=== PATIENT | female | born 1940 | race Caucasian/White ===

== ENCOUNTER 2016-04-23 07:33 | Inpatient (IN) | payer MEDICARE, OTHER ==
[~2016-04-23] VITALS: Ht 167.6 cm; Wt 75.8 kg
[2016-04-23] MEDS ORDERED: HYDROmorphone 1 MG/ML (DILAUDID) SYRINGE IV ONE (07:45)
[2016-04-23 08:00] VITALS: BP 143/59
[2016-04-23 08:02] LABS: BASOPHILS % (AUTO) 1 % (0-2); EOSINOPHILS # (AUTO) 0.1 10^3uL; EOSINOPHILS % (AUTO) 1 % (0-4); LYMPHOCYTES # (AUTO) 1.2 X10^3; MEAN CORPUSCULAR HGB CONC 34.7 g/dL (31.0-37.0); MEAN CORPUSCULAR VOLUME 93 FL (80-100); MONOCYTES # (AUTO) 0.8 X10^3; MONOCYTES % (AUTO) 15 % (3-11); NEUTROPHILS # (AUTO) 3.4 X10^3; NEUTROPHILS % (AUTO) 62 % (51-67); PLATELET COUNT 137 10^3uL (150-450); WHITE BLOOD COUNT 5.54 10^3uL (4.0-11.0)
[2016-04-23 08:14] LABS: ALBUMIN 4.2 g/dL (3.4-5.0); ANION GAP 12.7 MEQ/L (3-15); CALCULATED IONIZED CALCIUM 3.9 mg/dL (3.8-4.6); MEAN CORPUSCULAR HEMOGLOBIN 32.3 PG (26.0-34.0); TOTAL PROTEIN 7.7 g/dL (6.4-8.5)
[2016-04-23 09:07] LABS: BILIRUBIN,URINE Negative (Negative); CLARITY,URINE Slightly Cloudy; COLOR,URINE Yellow; GLUCOSE, URINE (UA) Negative (Negative); LEUKOCYTE ESTERASE ,URINE Negative (Negative); UROBILINOGEN,URINE 0.2 mg/dL (0.2-1.0)
[2016-04-23 09:10] LABS: URINE CENTRIFUGED VOLUME 12 mL
--- NOTE | 2016-04-23 09:11 | NUR ---
PT TEMP RECHK = 100.1 TEMPORAL. CL
--- NOTE | 2016-04-23 09:18 | NUR ---
DR GUPTA CALLS PHYSICIAN RE PT. CL
--- NOTE | 2016-04-23 09:23 | NUR ---
PT ALARM STARTED TO GO OFF SUDDENLY. THIS RN SAW A CARDIAC RATE OF 146. THIS RN CHECKS ON PT WHO IS LYING QUIETLY IN BED TALKING W/HER DAUGHTER & HUSB AT BEDSIDE. SHE STATES SHE FEELS HER USUAL "HEART PALPITATIONS" AT THIS TIME THEN STATES "IT FEELS LIKE MY HEART IS FLUTTERING". DR GUPTA NOTIFIED & ORDERS EKG. CL
[2016-04-23 09:45] LABS: CREATINE KINASE 27 U/L (30-135)
[2016-04-23] MEDS ORDERED: HYDROcodone/APAP 7.5 MG/325 MG (NORCO) TABLET PO PRN (10:10)
[2016-04-23] MEDS ORDERED: POLYETHYLENE GLYCOL 17 GM (MIRALAX) PACKET PO PRN (10:10)
[2016-04-23] MEDS ORDERED: ONDANSETRON 2 MG/ML (Z0FRAN) 2 ML VIAL IV PRN (10:10)
[2016-04-23] MEDS ORDERED: ACETAMINOPHEN 325 MG TAB (TYLENOL) PO PRN (10:10)
--- NOTE | 2016-04-23 10:10 | NUR ---
Patient admitted to room 315 per cart from ER. She reports relief from her leg pain but reports she doesn't like the way that particular pain medication makes her feel. She is able to transfer to the weight chair and to bed slowly but she is unsteady and uses furniture to walk with. Encouraged a walker.
[2016-04-23 10:33] VITALS: BP 150/67
--- NOTE | 2016-04-23 10:33 | NUR ---
MONITOR HAD BEEN DISCHARGED FOR PT WITH OUT HAVING CARDIAC STRIPS PRINTED PRIOR TO DC EXCEPT FOR INITIAL STRIP. HR WNL WITH EXCEPTION OF SHORT TACHY RUN WITH RATE OF 146 MAX RATE. RUN LASTED ONLY FOR 3 MIN. BEFORE RETURNING TO NML RATE. VITALS WERE ONLY PRINTED FROM 0858 TO D/C. CL
[2016-04-23 10:35] VITALS: BP 150/67
--- NOTE | 2016-04-23 10:45 | NUR ---
Telemetry indicates a heart rate of 85.
[2016-04-23] MEDS ORDERED: NS FLUSH 10 ML PRN IV (11:10)
[2016-04-23] MEDS ORDERED: NS FLUSH 3 ML PRN IV (11:10)
[2016-04-23] MEDS: GABAPENTIN 100 MG (NEURONTIN) CAP PO SCH ×3 (12:37→20:22)
[2016-04-23] MEDS: DOCUSATE SODIUM 100 MG (COLACE) CAP PO SCH (12:37)
[2016-04-23] MEDS: SPIRONOLACTONE 25 MG (ALDACTONE) TABLET PO SCH (12:37)
[2016-04-23] MEDS: SOTALOL 80 MG (BETAPACE) TAB PO SCH ×2 (12:38→20:22)
[2016-04-23] MEDS: ENOXAPARIN 80 MG/0.8 ML (LOVENOX) SYR SC SCH ×2 (12:38→20:22)
[2016-04-23] MEDS ORDERED: LORazepam 0.5 MG (ATIVAN) TABLET PO SCH (13:00)
--- NOTE | 2016-04-23 14:35 | NUR ---
Removed O2. Will recheck sat. Patient reports she normally only wears O2 at bedtime.
--- NOTE | 2016-04-23 15:12 | NUR ---
Medication reconciliation pending: Daughter to call in some script info from medication at home.
--- NOTE | 2016-04-23 15:25 | NUR ---
O2 sat.= 90-91% on room air.
[2016-04-23 16:14] VITALS: BP 112/56
--- NOTE | 2016-04-23 16:54 | NUR ---
Pt. states she used O2 @2 l nc at [facility]. IS at 750-1000mls, good effort.
--- NOTE | 2016-04-23 17:57 | NUR ---
Patient has been able to walk to the bathroom with assist of one or two and the walker. The walker seems to make her more confident about ambulation. Complained of headache pain earlier in the shift but this was relieved with Tylenol and one Lortab dose. Able to sit at the side of the bed independently. Uses bed rails to help reposition herself.
[2016-04-23] MEDS: LORazepam 0.5 MG (ATIVAN) TABLET PO SCH ×2 (18:04→20:22)
[2016-04-23 19:56] VITALS: BP 155/68
--- NOTE | 2016-04-23 20:50 | NUR ---
Patient up to use restroom with two assist, states she is having troubles moving feet while standing with walker. Is shuffling feet and starts to fall. Lowered to ground by staff. Returned to commode with 3 assist, and then returned to bed after with 3-4 assistance. Patient states "I don't know what happened, I was doing so well and then I just couldn't move my legs." Did not hit head, was lowered to ground to knees. Patient without new pain. Juan R Nevarez RN/Recruitment Specialist notified of controlled fall. No needs at this time.
[2016-04-23] MEDS ORDERED: SOTALOL 80 MG (BETAPACE) TAB PO SCH (21:00)
[2016-04-23] MEDS: HYDROcodone/APAP 7.5 MG/325 MG (NORCO) TABLET PO PRN (21:25)
--- NOTE | 2016-04-23 21:35 | NUR ---
Dr. Linares notified of patient's controlled fall. No new orders.
[2016-04-24] VITALS: BP 123/60
[2016-04-24] MEDS ORDERED: TROLAMINE TOP PRN (01:55)
[2016-04-24 04:32] VITALS: BP 127/66
[2016-04-24 06:05] LABS: BASOPHILS % (AUTO) 0 % (0-2); EOSINOPHILS % (AUTO) 1 % (0-4); LYMPHOCYTES # (AUTO) 1.5 X10^3; MEAN CORPUSCULAR HGB CONC 34.2 g/dL (31.0-37.0); MEAN CORPUSCULAR VOLUME 94 FL (80-100); MEAN PLATELET VOLUME 10.4 FL (6.0-9.5); MONOCYTES # (AUTO) 0.9 X10^3; MONOCYTES % (AUTO) 14 % (3-11); NEUTROPHILS # (AUTO) 3.7 X10^3; NEUTROPHILS % (AUTO) 60 % (51-67); PLATELET COUNT 117 10^3uL (150-450); WHITE BLOOD COUNT 6.09 10^3uL (4.0-11.0)
[2016-04-24 06:13] LABS: ALBUMIN 3.8 g/dL (3.4-5.0); ANION GAP 11.5 MEQ/L (3-15); CALCULATED IONIZED CALCIUM 3.8 mg/dL (3.8-4.6); MAGNESIUM* 1.6 mg/dL (1.6-2.3); TOTAL PROTEIN 7.1 g/dL (6.4-8.5)
--- NOTE | 2016-04-24 06:22 | NUR ---
Patient has had difficulties with leg strength throughout night. At times, has been unable to put any weight on her legs to support herself. Attempted to use [id number] lift, but patient reported back pain during use and requested to stop before moving off of bed. At this time, patient is utilizing bedpan, and states that she would like to try to stand again later in the morning. No needs at this time.
--- NOTE | 2016-04-24 07:15 | NUR ---
Patient sitting up at edge of bed upon shift assessment. Alert and oriented X3. Reports generalized headache neck ache rated 6/10 on pain scale.. PRN [place] provided. Denies chest pain, SOA, or palpitations. Telemetry intact and reflecting NSR. Lung sounds CTAB. Patient expresses concerns regarding weakness and current gate. Positive reassurance provided. Patient agrees to call for assistance when needing to ambulate. Updated on plan of care for shift. Call light in reach.
[2016-04-24] MEDS: HYDROcodone/APAP 7.5 MG/325 MG (NORCO) TABLET PO PRN ×2 (07:19→17:43)
[2016-04-24 07:43] VITALS: BP 141/57
[2016-04-24] MEDS: DOCUSATE SODIUM 100 MG (COLACE) CAP PO SCH (09:10)
[2016-04-24] MEDS: SOTALOL 80 MG (BETAPACE) TAB PO SCH ×2 (09:10→20:57)
[2016-04-24] MEDS: NS FLUSH 3 ML DAILY IV SCH (09:10)
[2016-04-24] MEDS: FLUoxetine 20 MG (PROzac) CAPSULE PO SCH (09:10)
[2016-04-24] MEDS: ENOXAPARIN 80 MG/0.8 ML (LOVENOX) SYR SC SCH (09:10)
[2016-04-24] MEDS: SPIRONOLACTONE 25 MG (ALDACTONE) TABLET PO SCH (09:10)
[2016-04-24] MEDS: LORazepam 0.5 MG (ATIVAN) TABLET PO SCH ×3 (12:29→20:57)
[2016-04-24] MEDS: GABAPENTIN 100 MG (NEURONTIN) CAP PO SCH ×3 (12:29→20:58)
--- NOTE | 2016-04-24 14:13 | NUR ---
MULTIDISCIPLINARY MTG/DR. SALAZAR: Pt. fell at home and was in Afib with RVR. This is chronic for Pt. and she is on medication at home for this. Pt. has been in sinus rhythm since admission. Telemetry was discharged. Pt. feels better today. Pt. would benefit from skilled care but is refusing to go to [facility]. Pt. may be skilled here at the hospital.
--- NOTE | 2016-04-24 14:54 | NUR ---
Med Rec completed via conversation with patient and list from [facility].
[2016-04-24 15:51] VITALS: BP 109/52
--- NOTE | 2016-04-24 18:03 | NUR ---
Patient sits up at edge of bed intermittently throughout day. Transferring with 2 assist to bedside commode. Reports feeling less weak but "not up to par". PETEN Yanelis provided per request at 1745 for c/o left knee pain rated 5/10 on pain scale. Daughter here this afternoon. Participates well with PT and OT. Call light in reach.
--- NOTE | 2016-04-24 20:49 | NUR ---
Pt found sleeping in bed on 2 l/min NC, SPO2 97%, HR 68.
[2016-04-24] MEDS: DABIGATRAN 150 MG (PRADAXA) CAPSULE PO SCH (20:58)
[2016-04-25 00:24] VITALS: BP 101/38
[2016-04-25 00:32] VITALS: BP 120/65
--- NOTE | 2016-04-25 04:30 | NUR ---
Patient rang call light to get up. 3 to one assist to transfer with gait belt. Patient became agitated and full of frustration during transfer. [place] rushed by staff to stand and transfer to chair and sat back on bed. Staff waited until patient stated she was ready. Transfer made. Transfers poorly.
--- NOTE | 2016-04-25 04:40 | NUR ---
Patient finished on commode and assisted back to bed. 2:1 assist. This ghost writer visits with patient about her frustration. Educated that we do not want her to fall again. Educated about the use of gait belts and standing close to patient to protect staff backs and prevent fall. Patient continues to be frustrated and makes statement more than once that she doesn't want to be here and if we don't want her here she will just go home. Patient can sometimes bear weight and walk and sometimes appears to not be able to bear weight or move legs. This ghost writer's assessment is that she cannot safely transfer without gait belt and 2:1 assist and her ability to bear weight and take steps is unreliable.
--- NOTE | 2016-04-25 07:00 | NUR ---
Received report from Dorys Franks RN. Assumed patient care.
--- NOTE | 2016-04-25 07:22 | NUR ---
Other than above incident, patient had quiet night and was without c/o pain or discomfort.
[2016-04-25 07:47] VITALS: BP 141/57
[2016-04-25 09:15] VITALS: BP 141/57
[2016-04-25] MEDS: NS FLUSH 3 ML DAILY IV SCH (09:17)
[2016-04-25] MEDS: SOTALOL 80 MG (BETAPACE) TAB PO SCH ×2 (09:18→16:39)
[2016-04-25] MEDS: FLUoxetine 20 MG (PROzac) CAPSULE PO SCH (09:18)
[2016-04-25] MEDS: DABIGATRAN 150 MG (PRADAXA) CAPSULE PO SCH ×2 (09:18→20:27)
[2016-04-25] MEDS: SPIRONOLACTONE 25 MG (ALDACTONE) TABLET PO SCH (09:18)
[2016-04-25] MEDS: DOCUSATE SODIUM 100 MG (COLACE) CAP PO SCH (09:18)
--- NOTE | 2016-04-25 10:47 | NUR ---
NUTRITION ASSESSMENT Level 1 Patient: Dorys Augustin Age/Sex: 76/F Date Screened: 04-25-16 Weight: 166.7#/75.8 kg Height: 66 inches Primary Diagnosis: a fib Diet Order: regular Relevant labs: N/A Food allergies: N Nutrition Assessment Criteria Age over 80: N Body Mass Index (BMI) under 19: N Admission Screening Indicates Risk? 6 points Moderate/High Risk Diagnosis: N TPN or PPN: N NPO or clear liquid diet: N Serum Glucose <70 or >180: N/A Hgb A1c >6.7: N/A Total: 6 points Risk Screen: __ Patient at low nutritional risk based on available data; reevaluate in 5-7 days __ Patient at moderate nutritional risk based on available data; reevaluate in 3-5 days _X_ Patient at high nutritional risk; complete Nutrition Assessment within 48 hours of admission.
[2016-04-25] MEDS: GABAPENTIN 100 MG (NEURONTIN) CAP PO SCH ×3 (12:31→20:27)
[2016-04-25] MEDS: LORazepam 0.5 MG (ATIVAN) TABLET PO SCH ×3 (12:31→20:27)
--- NOTE | 2016-04-25 13:32 | NUR ---
NUTRITION ASSESSMENT Level II Patient: Dorys Augustin Age/Sex: 76/F Date Assessed: 04-25-16 ASSESSMENT Pertinent History: Patient admitted with a fib and screened at high nutritional risk secondary to weight loss compared with last admission 5 months ago and concern for her ability to care for herself at home with weakness, recent falls and difficulty standing for periods of time. Pt. lives at home with her and her daughter helps with getting groceries and cooking. PMHx includes MS, a fib, heart failure and HTN. She denied GI concerns. Last documented weight was 175# in 2015. Meds/Nutrition: Spironolactone Weight: 166.7#/75.8 kg Height: 66 inches Body Mass Index (BMI): 27.0 [place] Body Weight : 130#/59 kg % IBW: 128% GASTROINTESTINAL Appetite: good, eating 75-100% Diet Order: regular Unintentional loss of >10 lbs. in 3 months: N Difficult to chew/swallow: N Diabetes: N Relevant Labs: N/A Calculations for Nutritional Assessment Estimated calorie needs: 22-25 kcals/kg = 1,650-1,875 kcals Estimated protein needs: 1.0-1.3 g/kg = 75-97 g./day DIAGNOSIS 1. Nutrition Diagnosis: Concern for inadequate intake related to difficulty preparing meals at home due to weakness as evidenced by 8.3# (4.7%) weight loss in the past 5 months and weakness/falls. NUTRITIONAL INTERVENTION Goal: Patient will receive adequate nutrition to meet her needs. Plan: Will provide regular diet as ordered and monitor intake for adequacy. Pt. is working with PT and OT and plan is for skilled care tomorrow to work on strengthening. Concern for her nutritional status at home will depend on her rehabilitation potential and ability to safely access foods and fluids, as well as family's ability to prepare meals for her. Per nursing, pt. is not currently safe even to walk across the room on her own to get a drink of water. MONITORING & EVALUATION _X_ Monitor patients menu selections _X_ Monitor patients food intake per nursing notes __ Monitor NPO/clear liquid days __ Monitor lab values __ Monitor I&O
[2016-04-25 15:52] VITALS: BP 148/66
[2016-04-25] MEDS: HYDROcodone/APAP 7.5 MG/325 MG (NORCO) TABLET PO PRN (16:37)
--- NOTE | 2016-04-25 23:50 | NUR ---
Pt. resting quietly in bed on left side upon assessment; alert and orientated; answers questions appropriately. Lungs sounds are clear bilaterally; denies discomfort; regular heart rate. Room temp adjusted for comfort; warm blanket provided by this nurse. Safety measures in place. Call light and H2O within reach.
[2016-04-25 23:57] VITALS: BP 109/50
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
--- NOTE | 2016-04-26 02:45 | NUR ---
Pt. resting in bed now; watching tv; O2 at 2L via NC applied for sleep/HS; call light, H2O within reach. Safety measures observed. Pt. denies discomfort.
--- NOTE | 2016-04-26 04:05 | NUR ---
Pt. requests bedside commode; pt. pivots well with gait belt and assist x 1; stand by x 1. Urine dark [place] in coloration; very odorous. Pt. denies discomfort. Back to bed; call light within reach; safety measures observed. Pt. did not appear to be anxious/agitated with mobility process this time.
--- NOTE | 2016-04-26 06:20 | NUR ---
Pt. slept in intervals; states, "I don't sleep very long at home, either-sleep for awhile then get up and go do something". Pt. denies discomfort. Pt. utilized bedside commode the last few times rather than ambulate into bathroom; becomes agitated with staff when a lot of activity is required; voids often. Pt. remains weak and unsteady; although determined to "do it myself". Pt. has remained afebrile. Safety measures in place; call light and H2O within reach.
[2016-04-26] MEDS: HYDROcodone/APAP 7.5 MG/325 MG (NORCO) TABLET PO PRN (07:21)
--- NOTE | 2016-04-26 07:28 | NUR ---
Sitting at edge of bed. Lortab given for pain in legs and feet. Patient describes twitching. States she didn't sleep well and that she should have asked for pain medicine earlier. Lays down to rest for a few minutes before breakfast. AM assessment completed.
[2016-04-26 08:00] VITALS: BP 140/68
[2016-04-26 08:02] VITALS: BP 123/52
[2016-04-26] MEDS ORDERED: POTASSIUM CHLORIDE ER 20 MEQ TABLET PO SCH (08:25)
[2016-04-26] MEDS: DOCUSATE SODIUM 100 MG (COLACE) CAP PO SCH (08:26)
[2016-04-26] MEDS: SOTALOL 80 MG (BETAPACE) TAB PO SCH (08:26)
[2016-04-26] MEDS: SPIRONOLACTONE 25 MG (ALDACTONE) TABLET PO SCH (08:26)
[2016-04-26] MEDS: FLUoxetine 20 MG (PROzac) CAPSULE PO SCH (08:27)
[2016-04-26] MEDS: DABIGATRAN 150 MG (PRADAXA) CAPSULE PO SCH (08:27)
[2016-04-26] MEDS ORDERED: MAGNESIUM OXIDE 400 MG (MAG-OX) TAB PO SCH (08:45)
[2016-04-26] MEDS: NS FLUSH 3 ML DAILY IV SCH (09:00)
--- NOTE | 2016-04-26 09:43 | NUR ---
Patient being transferred to [facility] today for strengthening. Has had a fair morning and seems in decent spirits for now since legs have quit hurting. No new complaints.
== END 2016-04-26 09:43 | disposition swing bed (61) | DRG 308 ==
LOC: EDUNIT# 07:33 → ED 07:35 → MED/SURG 09:37
PROVIDERS: ADMIT Internal Medicine; ATTEND Internal Medicine
DX: I48.0 Paroxysmal atrial fibrillation (principal); J96.21 Acute and chronic respiratory failure with hypoxia; Z66 Do not resuscitate; G35 Multiple sclerosis; I11.0 Hypertensive heart disease with heart failure; I50.9 Heart failure, unspecified; M25.562 Pain in left knee; R35.0 Frequency of micturition; E83.42 Hypomagnesemia; E87.6 Hypokalemia; R53.1 Weakness; G47.33 Obstructive sleep apnea (adult) (pediatric); Z91.81 History of falling
CPT/HCPCS: 36415; 71020; 73562; 80053; 81003; 81015; 82550; 82553; 83735; 83880; 84443; 84484; 85025; 86140; 87040; 87486; 87581; 87633; 87798; 93005; 93010; 99284

== ENCOUNTER → 2016-04-23 | Outpatient (CLI) | payer MEDICARE, OTHER | LOC: EMS 07:15 | PROVIDERS: ATTEND Family Medicine | DX: M25.562 Pain in left knee (principal); R29.6 Repeated falls ==

== ENCOUNTER 2016-04-26 09:43 | Inpatient (IN) | payer MEDICARE, OTHER ==
[~2016-04-26] VITALS: Ht 167.6 cm; Wt 76.3 kg
--- NOTE | 2016-04-26 09:45 | NUR ---
[facility]
[2016-04-26] MEDS ORDERED: SODIUM CHLORIDE FLUSH 3 ML SYR IV PRN (10:15)
[2016-04-26] MEDS ORDERED: TROLAMINE TOP PRN (10:15)
[2016-04-26] MEDS ORDERED: POLYETHYLENE GLYCOL 17 GM (MIRALAX) PACKET PO PRN (10:15)
[2016-04-26] MEDS ORDERED: MAGNESIUM HYDROXIDE 80MG/ML (MILK OF MAGNESIA) 30 ML UDC PO PRN (10:25)
[2016-04-26] MEDS: LORazepam 0.5 MG (ATIVAN) TABLET PO SCH ×3 (12:29→20:33)
[2016-04-26] MEDS: POTASSIUM CHLORIDE ER 20 MEQ TABLET PO SCH ×2 (12:29→18:00)
[2016-04-26 12:34] VITALS: BP 155/76
[2016-04-26] MEDS: GABAPENTIN 100 MG (NEURONTIN) CAP PO SCH ×3 (12:34→20:33)
--- NOTE | 2016-04-26 12:36 | NUR ---
Pt instructed on IS and she has a good understanding of technique and purpose. 5 x 1000 ml with good breath hold.
[2016-04-26 14:14] LABS: BILIRUBIN,URINE Negative (Negative); CLARITY,URINE Cloudy; COLOR,URINE Yellow; GLUCOSE, URINE (UA) Negative (Negative); LEUKOCYTE ESTERASE ,URINE Negative (Negative)
[2016-04-26 14:36] LABS: RBC,URINE 20-50 /HPF; URINE CENTRIFUGED VOLUME 12 mL
[2016-04-26 15:29] VITALS: BP 115/67
[2016-04-26] MEDS: MAGNESIUM OXIDE 400 MG (MAG-OX) TAB PO SCH (18:00)
[2016-04-26] MEDS: ACETAMINOPHEN 325 MG TAB (TYLENOL) PO PRN (18:09)
--- NOTE | 2016-04-26 18:36 | NUR ---
Patient had leg pain this morning and again around supper time. [place] given this AM and tylenol given this evening. Other than leg pain, patient has denied pain. was here to visit today and patient had nap in bed this afternoon. Has been ambulating to bathroom to void today with walker, gait belt and 1:1 assist. Transferred to [facility] this morning.
[2016-04-26] MEDS: DABIGATRAN 150 MG (PRADAXA) CAPSULE PO SCH (20:33)
[2016-04-26] MEDS: SOTALOL 80 MG (BETAPACE) TAB PO SCH (20:33)
[2016-04-27 00:13] VITALS: BP 115/48
--- NOTE | 2016-04-27 06:07 | NUR ---
Uneventful shift. Pt calls for assist as needed. Ambulates with staff assist x1 and walker to the bathroom. Resp even and non labored.
[2016-04-27 06:51] LABS: ALBUMIN 3.9 g/dL (3.4-5.0); ANION GAP 12.5 MEQ/L (3-15); PHOSPHORUS 3.8 mg/dL (2.4-4.9)
[2016-04-27] MEDS: HYDROcodone/APAP 7.5 MG/325 MG (NORCO) TABLET PO PRN ×2 (07:30→22:11)
--- NOTE | 2016-04-27 07:32 | NUR ---
[place] 7.5mg PO given as ordered for c/o BLE discomfort/restlessness. Lying down, resting before bfst meal arrives. Denies further needs at this time. Call light within reach.
[2016-04-27 07:37] VITALS: BP 136/60
[2016-04-27] MEDS: DABIGATRAN 150 MG (PRADAXA) CAPSULE PO SCH ×2 (08:14→20:18)
[2016-04-27] MEDS: MAGNESIUM OXIDE 400 MG (MAG-OX) TAB PO SCH ×2 (08:14→17:29)
[2016-04-27] MEDS: SPIRONOLACTONE 25 MG (ALDACTONE) TABLET PO SCH (08:14)
[2016-04-27] MEDS: SOTALOL 80 MG (BETAPACE) TAB PO SCH ×2 (08:16→20:18)
[2016-04-27] MEDS: FLUoxetine 20 MG (PROzac) CAPSULE PO SCH (08:16)
[2016-04-27] MEDS: DOCUSATE SODIUM 100 MG (COLACE) CAP PO SCH ×2 (08:16→20:18)
[2016-04-27] MEDS ORDERED: DOCUSATE SODIUM 100 MG (COLACE) CAP PO SCH (09:00)
[2016-04-27] MEDS: GABAPENTIN 100 MG (NEURONTIN) CAP PO SCH ×3 (11:42→20:18)
[2016-04-27] MEDS: LORazepam 0.5 MG (ATIVAN) TABLET PO SCH ×3 (11:42→20:18)
--- NOTE | 2016-04-27 14:24 | NUR ---
MULTIDISCIPLINARY MTG/DR. LANDIN: Pt. admitted to [facility] yesterday for PT. Pt. has been experiencing leg weakness. Continue to monitor Pt. urine and it appears fine. Encouraged Pt. to drink more. Pt. goal is to home on Sunday. PT will need to see Pt. prior to discharge. Dr. Landin did discuss alternative living arrangements for Pt. and her since they are both declining. No discharge needs identified at this time.
[2016-04-27 15:40] VITALS: BP 149/64
--- NOTE | 2016-04-27 17:33 | NUR ---
Pt sitting up on edge of bed, watching tv. Supper tray provided at this time. Remains on RA. Pt denies needs or c/o. Call light within reach, calls appropriately.
[2016-04-27] MEDS: ACETAMINOPHEN 325 MG TAB (TYLENOL) PO PRN (20:18)
[2016-04-27 23:41] VITALS: BP 106/68
--- NOTE | 2016-04-28 06:14 | NUR ---
Uneventful night. Pt rests well. Leg pain/restlessness controlled by PRN norco. Resp even and non labored on RA. Pt calls for assist as needed.
[2016-04-28 07:37] VITALS: BP 140/57
[2016-04-28] MEDS: MAGNESIUM OXIDE 400 MG (MAG-OX) TAB PO SCH ×2 (08:09→17:14)
[2016-04-28] MEDS: FLUoxetine 20 MG (PROzac) CAPSULE PO SCH (08:09)
[2016-04-28] MEDS: DOCUSATE SODIUM 100 MG (COLACE) CAP PO SCH ×2 (08:09→20:59)
[2016-04-28] MEDS: DABIGATRAN 150 MG (PRADAXA) CAPSULE PO SCH ×2 (08:09→21:00)
[2016-04-28] MEDS: SOTALOL 80 MG (BETAPACE) TAB PO SCH ×2 (08:09→20:59)
[2016-04-28] MEDS: SPIRONOLACTONE 25 MG (ALDACTONE) TABLET PO SCH (08:09)
--- NOTE | 2016-04-28 08:45 | NUR ---
Pt alert/oriented, ambulating in room with SBA. Pt denies needs at this time.
[2016-04-28] MEDS: LORazepam 0.5 MG (ATIVAN) TABLET PO SCH ×3 (11:45→20:59)
[2016-04-28] MEDS: GABAPENTIN 100 MG (NEURONTIN) CAP PO SCH ×3 (11:45→21:00)
[2016-04-28] MEDS: HYDROcodone/APAP 7.5 MG/325 MG (NORCO) TABLET PO PRN ×2 (13:08→21:00)
--- NOTE | 2016-04-28 13:12 | NUR ---
[place] 7.5mg PO given as ordered for c/o left knee pain and bilat feet discomfort "flexing". Don, just left from visiting. Pt requests to lay down for afternoon nap.
[2016-04-28 15:32] VITALS: BP 136/62
--- NOTE | 2016-04-28 17:30 | NUR ---
Pt has been ambulating to/from bathroom to chair indep in room. Has ambulated in halls to/from [facility] room (Room 310). Pt denies needs at this time. Supper meal provided.
[2016-04-28 23:56] VITALS: BP 104/58
--- NOTE | 2016-04-29 06:07 | NUR ---
Uneventful night. Pt denies needs or complaints. Resp even and non labored on RA. Pt calls for assist as needed.
[2016-04-29 07:50] VITALS: BP 137/67
--- NOTE | 2016-04-29 07:53 | NUR ---
Patient sitting up in recliner upon shift assessment. Alert and oriented X3. Denies pain, nausea, SOA, or other distress. HR at this time RRR. Lung sounds CTAB. BLE with trace non-pitting edema. Updated on plan of care for shift including PT schedule. Call light in reach.
[2016-04-29] MEDS: DABIGATRAN 150 MG (PRADAXA) CAPSULE PO SCH ×2 (08:20→21:06)
[2016-04-29] MEDS: SPIRONOLACTONE 25 MG (ALDACTONE) TABLET PO SCH (08:20)
[2016-04-29] MEDS: DOCUSATE SODIUM 100 MG (COLACE) CAP PO SCH ×2 (08:20→21:06)
[2016-04-29] MEDS: MAGNESIUM OXIDE 400 MG (MAG-OX) TAB PO SCH ×2 (08:20→17:29)
[2016-04-29] MEDS: SOTALOL 80 MG (BETAPACE) TAB PO SCH ×2 (08:20→21:06)
[2016-04-29] MEDS: FLUoxetine 20 MG (PROzac) CAPSULE PO SCH (08:21)
[2016-04-29] MEDS: GABAPENTIN 100 MG (NEURONTIN) CAP PO SCH ×3 (11:58→21:08)
[2016-04-29] MEDS: LORazepam 0.5 MG (ATIVAN) TABLET PO SCH ×3 (11:59→21:07)
[2016-04-29] MEDS: HYDROcodone/APAP 7.5 MG/325 MG (NORCO) TABLET PO PRN ×2 (13:02→22:11)
[2016-04-29 16:14] VITALS: BP 136/54
--- NOTE | 2016-04-29 18:03 | NUR ---
Patient independent in room with walker throughout day shift. Sits up in recliner for meals. Ambulates down shannon to visit son on two occasions with standby assist. PRN [place] provided at 1300 for c/o left knee pain rated 5/10 on pain scale. Currently denying pain. Pleasant and cooperative with cares. Call light in reach.
--- NOTE | 2016-04-29 20:00 | NUR ---
Resting in recliner chair. Wanting to ambulate to see son down the shannon. Ambulates slowly with walker. No concerns at this time.
--- NOTE | 2016-04-29 22:00 | NUR ---
Ready for sleep. Oxygen placed on at 2 liters as ordered, per nasal cannula. PRN [place] administered for left knee discomfort. Call light within reach.
[2016-04-30 00:26] VITALS: BP 138/68
--- NOTE | 2016-04-30 06:22 | NUR ---
Rested at long intervals tonight. Ambulates slowly with walker to the bathroom and back. Needs assistance with her legs, having them lifted into bed, otherwise does fairly well. No concerns this morning. Call light within reach.
[2016-04-30 07:41] VITALS: BP 118/71
[2016-04-30] MEDS: FLUoxetine 20 MG (PROzac) CAPSULE PO SCH (08:07)
[2016-04-30] MEDS: MAGNESIUM OXIDE 400 MG (MAG-OX) TAB PO SCH ×2 (08:07→17:31)
[2016-04-30] MEDS: DABIGATRAN 150 MG (PRADAXA) CAPSULE PO SCH ×2 (08:07→21:37)
[2016-04-30] MEDS: SPIRONOLACTONE 25 MG (ALDACTONE) TABLET PO SCH (08:07)
[2016-04-30] MEDS: SOTALOL 80 MG (BETAPACE) TAB PO SCH ×2 (08:07→21:37)
[2016-04-30] MEDS: DOCUSATE SODIUM 100 MG (COLACE) CAP PO SCH ×2 (08:07→21:37)
[2016-04-30] MEDS: LORazepam 0.5 MG (ATIVAN) TABLET PO SCH ×3 (11:59→21:37)
[2016-04-30] MEDS: GABAPENTIN 100 MG (NEURONTIN) CAP PO SCH ×3 (11:59→21:38)
[2016-04-30 16:00] VITALS: BP 135/50
[2016-04-30] MEDS: HYDROcodone/APAP 7.5 MG/325 MG (NORCO) TABLET PO PRN ×2 (17:31→21:39)
--- NOTE | 2016-04-30 18:16 | NUR ---
Uneventful day shift. PRN [place] provided at 1800 for c/o left knee pain rated 6/10 on pain scale. Ambulates in shannon on three occasions to visit son down the shannon. Steady gate with walker. Independent in room and with toileting. Call light in reach.
[2016-05-01 00:28] VITALS: BP 136/67
--- NOTE | 2016-05-01 06:30 | NUR ---
Patient ambulates independently in room and in the hallways to see son, who is a patient. Ambulates slowly with walker. Reminded patient to call for assistance as needed. [place] 7.5mg administered at HS for knee and leg discomfort. No concerns voiced. Call light within reach.
[2016-05-01 08:25] VITALS: BP 138/67
[2016-05-01] MEDS: SPIRONOLACTONE 25 MG (ALDACTONE) TABLET PO SCH (09:36)
[2016-05-01] MEDS: DOCUSATE SODIUM 100 MG (COLACE) CAP PO SCH ×2 (09:36→21:00)
[2016-05-01] MEDS: MAGNESIUM OXIDE 400 MG (MAG-OX) TAB PO SCH ×2 (09:36→18:02)
[2016-05-01] MEDS: SOTALOL 80 MG (BETAPACE) TAB PO SCH ×2 (09:37→21:12)
[2016-05-01] MEDS: DABIGATRAN 150 MG (PRADAXA) CAPSULE PO SCH ×2 (09:37→21:13)
[2016-05-01] MEDS: FLUoxetine 20 MG (PROzac) CAPSULE PO SCH (09:37)
[2016-05-01] MEDS: LORazepam 0.5 MG (ATIVAN) TABLET PO SCH ×3 (13:12→21:12)
[2016-05-01] MEDS: GABAPENTIN 100 MG (NEURONTIN) CAP PO SCH ×3 (13:14→21:13)
--- NOTE | 2016-05-01 14:37 | NUR ---
MULTIDISCIPLINARY MTG/DR. SALAZAR: Pt. continues to work with therapies while in swing bed. Pt. has been slow to improve. Pt. is eager to go home. Pt. could possibly be discharged tomorrow after working with PT/OT. Pt. will benefit from a fall risk program. SW will look into resources for this.
--- NOTE | 2016-05-01 15:32 | NUR ---
Patient has walked the halls multiple times today. She told this nurse that she expects to go home in the morning. I did explain to her that she would need a full day of PT/OT tomorrow before discharge.
[2016-05-01 15:54] VITALS: BP 127/65
--- NOTE | 2016-05-01 18:40 | NUR ---
Patient has had no complaints this afternoon. Has walked in shannon to visit in son's room and walked in shannon with PT. Had nap this afternoon. Watches TV this evening and denies needs.
[2016-05-01] MEDS: HYDROcodone/APAP 7.5 MG/325 MG (NORCO) TABLET PO PRN (19:30)
--- NOTE | 2016-05-01 22:14 | NUR ---
Pt declines her HS Colace. She takes 1 Gabapentin and refuses the second one.
[2016-05-02 00:09] VITALS: BP 116/53
[2016-05-02] MEDS: HYDROcodone/APAP 7.5 MG/325 MG (NORCO) TABLET PO PRN (05:07)
--- NOTE | 2016-05-02 06:09 | NUR ---
Uneventful shift. Pt rests well. PRJerry lin provided x1 for pt c/o "leg hurting." On RA.
[2016-05-02 07:39] VITALS: BP 121/50
[2016-05-02] MEDS: DOCUSATE SODIUM 100 MG (COLACE) CAP PO SCH (09:00)
[2016-05-02] MEDS: MAGNESIUM OXIDE 400 MG (MAG-OX) TAB PO SCH (09:02)
[2016-05-02] MEDS: SOTALOL 80 MG (BETAPACE) TAB PO SCH (09:02)
[2016-05-02] MEDS: FLUoxetine 20 MG (PROzac) CAPSULE PO SCH (09:02)
[2016-05-02] MEDS: SPIRONOLACTONE 25 MG (ALDACTONE) TABLET PO SCH (09:02)
[2016-05-02] MEDS: DABIGATRAN 150 MG (PRADAXA) CAPSULE PO SCH (09:02)
[2016-05-02 11:43] VITALS: BP 115/52
[2016-05-02] MEDS: GABAPENTIN 100 MG (NEURONTIN) CAP PO SCH (13:23)
[2016-05-02] MEDS: LORazepam 0.5 MG (ATIVAN) TABLET PO SCH (13:23)
--- NOTE | 2016-05-02 13:30 | NUR ---
Gave the patient discharge instructions and informed her that scripts have been electronically sent to [facility]. Instructed her about follow up lab work and appointment with PCP. Patient demonstrated verbal understanding.
--- NOTE | 2016-05-02 13:37 | NUR ---
Reviewed discharge medications with patient. Provided patient handout information for new medications. No additional questions or concerns. Patient verbalized understanding of medications. Conducted by Dexter LouisD Candidate 2017.
--- NOTE | 2016-05-02 13:40 | NUR ---
Patient dismissed per wheelchair accompanied by the ward service supervisor and her daughter.
== END 2016-05-02 13:40 | disposition home health service (06) | DRG 948 ==
LOC: MED/SURG 09:43 → UNDOADMIN 09:43
PROVIDERS: ADMIT Internal Medicine; ATTEND Internal Medicine
DX: R53.1 Weakness (principal); J96.10 Chronic respiratory failure, unspecified whether with hypoxia or hypercapnia; Z66 Do not resuscitate; G35 Multiple sclerosis; R35.0 Frequency of micturition; I48.0 Paroxysmal atrial fibrillation; M25.562 Pain in left knee; E83.42 Hypomagnesemia; E87.6 Hypokalemia; I11.0 Hypertensive heart disease with heart failure; I50.9 Heart failure, unspecified; Z91.81 History of falling
CPT/HCPCS: 36415; 80069; 81003; 81015; 83735

== ENCOUNTER → 2016-05-09 | Outpatient (CLI) | payer MEDICARE, OTHER ==
[2016-05-09 10:45] LABS: BASOPHILS % (AUTO) 1 % (0-2); EOSINOPHILS # (AUTO) 0.1 10^3uL; EOSINOPHILS % (AUTO) 3 % (0-4); LYMPHOCYTES # (AUTO) 1.6 X10^3; MEAN CORPUSCULAR HGB CONC 34.8 g/dL (31.0-37.0); MEAN CORPUSCULAR VOLUME 94 FL (80-100); MEAN PLATELET VOLUME 9.8 FL (6.0-9.5); MONOCYTES # (AUTO) 0.5 X10^3; MONOCYTES % (AUTO) 10 % (3-11); NEUTROPHILS # (AUTO) 2.5 X10^3; NEUTROPHILS % (AUTO) 52 % (51-67); PLATELET COUNT 184 10^3uL (150-450); WHITE BLOOD COUNT 4.83 10^3uL (4.0-11.0)
[2016-05-09 10:50] LABS: MEAN CORPUSCULAR HEMOGLOBIN 32.5 PG (26.0-34.0)
[2016-05-09 10:56] LABS: ALBUMIN 4.4 g/dL (3.4-5.0)
== END ==
LOC: LAB 10:31
PROVIDERS: ATTEND Internal Medicine
DX: D50.8 Other iron deficiency anemias (principal); I10 Essential (primary) hypertension; G35 Multiple sclerosis
CPT/HCPCS: 36415; 80069; 84450; 85025; 86140

== ENCOUNTER 2016-07-15 17:30 | Inpatient (IN) | payer MEDICARE, OTHER ==
[~2016-07-15] VITALS: Ht 167.6 cm; Wt 76.8 kg
[~2016-07-15 17:30] MED LIST changes: -DLT120CCR PO; -NFLOSA25TA PO; -SULF-221 PO
[2016-07-15] MEDS ORDERED: DILTIAZEM 25 MG/5 ML (CARDIZEM) VIAL IV ONE (17:40)
[2016-07-15] MEDS ORDERED: NS IV 500 ML 500 ML IV SCH (17:40)
[2016-07-15] MEDS ORDERED: SODIUM CHLORIDE FLUSH 10 ML SYR IV PRN (17:40)
[2016-07-15] MEDS ORDERED: SODIUM CHLORIDE FLUSH 3 ML SYR IV ONE (17:40)
[2016-07-15 17:55] LABS: BASOPHILS % (AUTO) 1 % (0-2); EOSINOPHILS # (AUTO) 0.1 10^3uL; EOSINOPHILS % (AUTO) 2 % (0-4); LYMPHOCYTES # (AUTO) 2.1 X10^3; MEAN CORPUSCULAR HEMOGLOBIN 30.6 PG (26.0-34.0); MEAN CORPUSCULAR HGB CONC 32.7 g/dL (31.0-37.0); MEAN CORPUSCULAR VOLUME 94 FL (80-100); MEAN PLATELET VOLUME 10.4 FL (6.0-9.5); MONOCYTES # (AUTO) 0.6 X10^3; MONOCYTES % (AUTO) 12 % (3-11); NEUTROPHILS # (AUTO) 2.1 X10^3; NEUTROPHILS % (AUTO) 42 % (51-67); PLATELET COUNT 166 10^3uL (150-450); WHITE BLOOD COUNT 4.93 10^3uL (4.0-11.0)
[2016-07-15 18:05] LABS: ALBUMIN 4.7 g/dL (3.4-5.0); ALKALINE PHOSPHATASE 109 U/L (38-126); ANION GAP 17.1 MEQ/L (3-15); BUN/CREATININE RATIO 21 (10-20); CALCULATED IONIZED CALCIUM 3.9 mg/dL (3.8-4.6); CREATINE KINASE 31 U/L (30-135); TOTAL PROTEIN 8.7 g/dL (6.4-8.5)
--- NOTE | 2016-07-15 18:23 | Diagnostic Imaging Report ---
CLINICAL INDICATION: Patient reports palpitations. EXAM: Portable chest x-ray upright view. COMPARISONS: None. FINDINGS: Stable cardiomegaly with no significant pulmonary vascular congestion. There is no interval lung infiltrate. There is no pleural effusion or pneumothorax. There are hypertrophic spurs seen throughout spine. IMPRESSION: 1.: Stable cardiomegaly with no significant pulmonary vascular congestion or interval lung infiltrate. Dictated by: Dictated on workstation # [id number]
--- NOTE | 2016-07-15 19:34 | History and Physical (E) ---
History & Physical PCP: Jose Hasa MD CC: Palpitations HPI Dorys Augustin is a 76 year old female admitted from ED 07/15 where she presented from home via EMS for palpitations. Has been worse over the last two days. Has atrial fibrillation and normally takes sotalol. Before EMS arrived today she was feeling flushed and like she might pass out but didn't. Refused transfer to [facility] when this was suggested in ED. HR was 153 and tele showed 2:1 atrial flutter. Afebrile. BP 137/81. SpO2 94% RA. CBC fairly unremarkable. Chemistry stable but CO2 was 30. Troponin negative. NT-pro- BNP 1620. TSH normal. Urine was not checked. CXR showed no acute changes. She was given NS bolus and diltiazem 20 mg IV bolus which caused her to convert to SR. Symptoms improved. She was admitted with telemetry for further observation. Seen and examined in ED. States onset of this illness was through last week, off and on, having pounding and fluttering feeling in her chest. Episodes would last for a few minutes but it was occurring 3-4 times each day. Grew progressively worse especially last two days with longer periods of palpitations. Taking deep breaths would sometimes help. Admits to sometimes being a bit later int he morning with sotalol but overall, no missed doses. Denies chest pain. [place] like she might pass out today but has not had syncopal episode. No fever, no cough, no new shortness of breath. No new GI complaints but she had nausea with the near syncopal episode. PMH * MS * paroxysmal Atrial Fibrillation * Heart failure * Essential Hypertension * BARTOLOME * RLS PSH * Partial hysterectomy * Arthoscopes of bilateral knees, right shoulder ALLERGIES: Please see list at end of report. HOME MEDICATIONS: Please see list at end of report. 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 He is quite frail. ROS CONSTITUTION: Denies weight loss or gain. Denies fever or chills. HEENT: No change in vision or hearing. No sores in mouth, sore throat. CV: Per HPI, exam. PULM: Per HPI, exam. GI: No diarrhea, no constipation. : No dysuria. No blood in urine. MS: No new muscle or joint aches and pains. NEURO: No numbness or tingling. No weakness. INTEG: No new rashes, lesions, or sores, but she has blanching macules on legs that are chronic. ENDO: No heat or cold intolerance. No polydipsia or polyuria. HEME/LYMPH: Easy bruising (on anticoagulation.) PSYCH: No change in mood or behavior. Has felt more fatigued. OBJECTIVE Vital Signs Date Time Temp Pulse Resp B/P Pulse Ox O2 Delivery O2 Flow Rate FiO2 07/15/16 17:45 93 Nasal Cannula 2 07/15/16 17:34 97.4 153 22 137/81 GEN: Awake, alert, oriented, NAD at present. HEENT: EOMI, PERRL, somewhat dry oral mucosa. CV: RRR S1 S2 normal now with SR on tele. Faint II/ systolic murmur at LSB. LUNGS: CTA B with no R/R/W. ABD: Soft, NT/ND with normal bowel sounds. EXTR: 3+ BLE edema, chronic. INTEG: No rash. Blanching macules on legs bilaterally, chronic. Age related changes. NEURO: No focal motor neuro deficit. Mild psychomotor slowing. Weight: 78.2 kg Laboratory Results-14 Days 07/15/16 17:19: Alanine Aminotransferase (ALT/SGPT) 15L, Albumin 4.7, Albumin/Globulin Ratio 1.175, Alkaline Phosphatase 109, Anion Gap 17.1H, Aspartate Amino Transf (AST/ SGOT) 21, BUN/Creatinine Ratio 21H, Basophils # (Auto) 0.1, Basophils (%) (Auto ) 1, Blood Urea Nitrogen 14#, Calcium Level 9.9, Calcium/Ionized Calcium Ratio 3.9, Calculated Osmolality 281, Carbon Dioxide Level 30H, Chloride Level 102, Creatine Kinase MB 0.8, Creatinine 0.66, Eosinophils # (Auto) 0.1, Eosinophils ( %) (Auto) 2, Estimat Glomerular Filtration Rate 105.1, Estimated GFR (Non- 86.8, Glucose Level 105, Hematocrit 40.40, Hemoglobin 13.2, Lymphocytes # (Auto) 2.1, Lymphocytes (%) (Auto) 42, Magnesium Level 2.0, Mean Corpuscular Hemoglobin 30.6, Mean Corpuscular Hemoglobin Concent 32.7, Mean Corpuscular Volume 94, Mean Platelet Volume 10.4H, Monocytes # (Auto) 0.6, Monocytes (%) (Auto) 12H, RH-Ahv-R-Type Natriuretic Peptide 1620H, Neutrophils # (Auto) 2.1, Neutrophils (%) (Auto) 42L, Platelet Count 166, Potassium Level 3.9, Prothromb Time International Ratio 1.1, Prothrombin Time 11.8, Red Blood Count 4.32, Red Cell Distribution Width 13.1, Sodium Level 145, Thyroid Stimulating Hormone (TSH) 1.18, Total Bilirubin 1.0, Total Creatine Kinase 31, Total Protein 8.7H, Troponin I < 0.012, White Blood Count 4.93 EKG 07/15/16 @ 1737 A flutter? 2:1 with RVR. QTc 488. Rate 155 07/15/16 @ 18[address] SR with no acute ST/T wave changes. IMAGING 07/15/16 CHEST 1 VIEW, AP/PA ONLY* CLINICAL INDICATION: Patient reports palpitations. EXAM: Portable chest x-ray upright view. COMPARISONS: None. FINDINGS: Stable cardiomegaly with no significant pulmonary vascular congestion. There is no interval lung infiltrate. There is no pleural effusion or pneumothorax. There are hypertrophic spurs seen throughout spine. IMPRESSION: 1.: Stable cardiomegaly with no significant pulmonary vascular congestion or interval lung infiltrate. ASSESSMENT Dorys Augustin is a 76 year old female admitted from ED 07/15 where she presented with atrial flutter with RVR in the setting of known atrial fibrillation. She was given NS bolus and diltiazem in ED which converted her to sinus rhythm. She has a few other chronic problems. PLAN * Atrial flutter with RVR, Atrial fibrillation (Chronic): Got diltiazem 20 mg IV bolus in ED which converted her back to sinus rhythm. No definitive etiology for RVR on admit. Monitor tele, troponin trend. Takes sotalol already and had her dose on the day of admit. Continue PO diltiazem PRN RVR but if that isn't sufficiency, transfer to ICU for diltiazem drip. Continue sotalol. * Dehydration: On the basis of exam. Mild on admit. NS bolus given in ED. Check UA. Monitor I&O. * F/E/N: Peripheral IV. Regular diet (per patient request.) IVF as above. I&O, daily weight. * Prophylaxis: Dabigatran. * Code Status: DNR. Discussed at the time of admission. * Dispo: Observation pending utilization review. Expect 2 day stay at least. CHRONIC ISSUES * Essential Hypertension: sotalol, spironolactone. * BARTOLOME: Home oxygen 2 L at bedtime. * Depression: Fluoxetine * Restless Leg Syndrome: Observe * MS: Not on medication at home. Observe. * Constipation: Bowel regimen. Allergies/Home Medications Allergies: Coded Allergies: No Known Drug Allergies (Unverified , 04/23/16) Reported Home Medications Scheduled Alendronate Sodium (Fosamax) 70 MG PO WEEKLY (Reported) Dabigatran Etexilate (Pradaxa) 150 MG PO BID Docusate Sodium (Docusate Sodium) 100 MG PO DAILY (Reported) Fluoxetine HCl (Prozac) 20 MG PO DAILY (Reported) Furosemide (Furosemide) 40 MG PO DAILY Gabapentin (Gabapentin) 200 MG PO HS Gabapentin (Gabapentin) 100 MG PO TIDWM (Reported) Magnesium Oxide (Magnesium Oxide) 400 MG PO DAILY Potassium Chloride (Potassium Chloride ER) 10 MEQ PO DAILY Sotalol HCl (Sotalol) 80 MG PO BID (Reported) Spironolactone (Spironolactone) 25 MG PO DAILY Scheduled PRN Acetaminophen/Diphenhydramine (Tylenol Pm) 1 TAB PO HS PRN PRN PAIN/INSOMNIA Hydrocodone/Acetaminophen ([place] 7.5mg/325mg) 0.5-1 TAB PO DAILY PRN PRN PAIN ( Reported) Hydrocortisone (Anusol-HC 2.5% Cream) 0 TOP BID PRN PRN DISCOMFORT (Reported) Lorazepam (Lorazepam) 0.5 MG PO QID PRN PRN ANXIETY (Reported) Copies to: End of Report . RACQUEL SALAZAR MD July 15, 2016 19:04
[2016-07-15] MEDS ORDERED: MAGNESIUM HYDROXIDE 80MG/ML (MILK OF MAGNESIA) 30 ML UDC PO PRN (19:35)
[2016-07-15] MEDS ORDERED: CALCIUM CARBONATE CHEWABLE 300 MG (TUMS) TABLET PO PRN (19:35)
[2016-07-15] MEDS ORDERED: ONDANSETRON 4 MG (ZOFRAN) ORAL DISSOLVE TAB PO PRN (19:35)
[2016-07-15] MEDS ORDERED: POLYETHYLENE GLYCOL 17 GM (MIRALAX) PACKET PO PRN (19:35)
[2016-07-15] MEDS ORDERED: DOCUSATE SODIUM 100 MG (COLACE) CAP PO PRN (19:35)
[2016-07-15] MEDS ORDERED: ACETAMINOPHEN/DIPHENHYDRAMINE 500/25 MG (TYLENOL PM) TABLET PO PRN (19:35)
[2016-07-15] MEDS ORDERED: ACETAMINOPHEN 325 MG TAB (TYLENOL) PO PRN (19:35)
[2016-07-15] MEDS ORDERED: DILTIAZEM 60 MG (CARDIZEM) TAB PO PRN (19:35)
[2016-07-15] MEDS ORDERED: PROMETHAZINE HCL INJ 12.5 MG in SODIUM CHLORIDE 25 ML IV PRN (19:35)
[2016-07-15] MEDS ORDERED: LORazepam 0.5 MG (ATIVAN) TABLET PO PRN (19:35)
[2016-07-15] MEDS ORDERED: MAG HYDROX/AL HYDROX/SIMETH 200-200-20/5 ML (MAG-AL PLUS) 30 ML UDC PO PRN (19:35)
[2016-07-15] MEDS ORDERED: HYDROcodone/APAP 7.5 MG/325 MG (NORCO) TABLET PO PRN (19:35)
--- NOTE | 2016-07-15 19:54 | NUR ---
Patient arrived with wet pull-up and has voided 5 more times since arriving in ED.
[2016-07-15 20:29] VITALS: BP 166/76
[2016-07-15 20:30] VITALS: BP 166/76
--- NOTE | 2016-07-15 20:33 | NUR ---
Patient admitted to room. Oriented to room and hospital procedures. Family with patient. Patient has MS and ambulates slowly, takes a few short steps at a time. Uses walker. Denies any discomforts at this time. Respirations even and non-labored. Call light within reach.
[2016-07-15] MEDS ORDERED: GABAPENTIN 100 MG (NEURONTIN) CAP PO SCH (21:00)
[2016-07-15] MEDS ORDERED: SOTALOL 80 MG (BETAPACE) TAB PO SCH (21:00)
[2016-07-15] MEDS ORDERED: DABIGATRAN 150 MG (PRADAXA) CAPSULE PO SCH (21:00)
--- NOTE | 2016-07-15 21:23 | NUR ---
Pt found sitting in bed on RA, SPO2 93%, HR 81, Pt placed on 2 l/min NC equal to home noc use.
--- NOTE | 2016-07-15 21:30 | NUR ---
Patient ate 50% of meal. Takes fluids without difficulty. Voided on commode. Urine specimen to Lab.
--- NOTE | 2016-07-15 22:00 | NUR ---
Telemetry shows NSR rate 77.
--- NOTE | 2016-07-15 23:07 | NUR ---
Icu called and patient in SVT. Vitals 129/69 P-124 R-20. Oxygen at 2 liters per NC. Sat 96%. Patient denies chest pain, but is having palpations. Patient then converted to A-fib with RVR.
--- NOTE | 2016-07-15 23:22 | NUR ---
Sent note to Dr Parker.
--- NOTE | 2016-07-15 23:23 | NUR ---
Patient converted to SR in the 70's
--- NOTE | 2016-07-15 23:42 | NUR ---
Dr Parker called and orders received.
[2016-07-15 23:45] VITALS: BP 143/55
--- NOTE | 2016-07-15 23:45 | NUR ---
Patient transported to ICU.
--- NOTE | 2016-07-15 23:45 | NUR ---
Patient transported via wheelchair to ICU room [address] Parker's order for afib w/ RVR rate 130's. New orders for Diltiazem drip provided. Patient alert and oriented, resting, states she can feel her chest palpitations and waiting for it to stop
--- NOTE | 2016-07-15 23:46 | NUR ---
Patient requested that her daughter be called, which was done.
[2016-07-16] VITALS (23 sets, daily range): BP systolic 100–149; BP diastolic 39–100
[2016-07-16] MEDS ORDERED: DILTIAZEM 25 MG/5 ML (CARDIZEM) VIAL IV SCH
[2016-07-16] MEDS ORDERED: DILTIAZEM IV FOR DRIP 125 MG in SODIUM CHLORIDE 100 ML IV PRN (00:15)
[2016-07-16] MEDS ORDERED: DILTIAZEM 125 MG/25 ML IV ONE (00:19)
[2016-07-16] MEDS ORDERED: SODIUM CHLORIDE 100 ML ONE (00:20)
[2016-07-16] MEDS ORDERED: SODIUM CHLORIDE FLUSH 10 ML ONE (00:22)
--- NOTE | 2016-07-16 00:30 | NUR ---
Orders for Diltiazem drip given and clarified with Tele MD, patient in bed respirations even unlabored on O2 2 L/nc at night, IV right wrist patent with IV drip at 5 mg/hr initiated 20 G left wrist SL, VS q 15 min and as charted. Patient asking for bed quinonez continent of urine. continue to monitor
--- NOTE | 2016-07-16 01:10 | NUR ---
Titrated dose of IV Diltiazem to 10 mg/hr. Continue to monitor VS as charted.
[2016-07-16] MEDS ORDERED: PROMETHAZINE HCL INJ 12.5 MG in SODIUM CHLORIDE 25 ML IV PRN ×2 (01:35→13:35)
[2016-07-16] MEDS ORDERED: MAG HYDROX/AL HYDROX/SIMETH 200-200-20/5 ML (MAG-AL PLUS) 30 ML UDC PO PRN ×2 (01:35→13:35)
[2016-07-16] MEDS ORDERED: ACETAMINOPHEN 325 MG TAB (TYLENOL) PO PRN ×2 (01:35→13:35)
--- NOTE | 2016-07-16 02:00 | NUR ---
Called lab to find ua results, stated did not run did not see order.
--- NOTE | 2016-07-16 02:30 | NUR ---
UA collected send to lab
--- NOTE | 2016-07-16 02:55 | NUR ---
Rate 50's - 60's afib. MD notified - Titrate Diltiazem drip down to 5 mg/hr.
[2016-07-16 03:11] LABS: BILIRUBIN,URINE Negative (Negative); CLARITY,URINE Clear; COLOR,URINE Yellow; GLUCOSE, URINE (UA) Negative (Negative); LEUKOCYTE ESTERASE ,URINE Trace (Negative); UROBILINOGEN,URINE 0.2 mg/dL (0.2-1.0)
[2016-07-16 03:12] LABS: URINE CENTRIFUGED VOLUME 12 mL
--- NOTE | 2016-07-16 03:15 | NUR ---
Patient requesting [place] home dose 0.5 tab of 7.5 mg for c/o back pain and chronic leg pain.
--- NOTE | 2016-07-16 03:20 | NUR ---
UA results returned and MD notified, new order for Rocephin received and initiated.
[2016-07-16] MEDS ORDERED: CALCIUM CARBONATE CHEWABLE 300 MG (TUMS) TABLET PO PRN ×2 (03:35→19:35)
--- NOTE | 2016-07-16 03:35 | NUR ---
Tele MD called - updated on VS - Continue with Diltiazem 5 mg/hr as ordered.
[2016-07-16] MEDS ORDERED: cefTRIAXone SODIUM 1,000 MG in SODIUM CHLORIDE 50 ML IV SCH (03:45)
[2016-07-16] MEDS ORDERED: cefTRIAXone 1 GM (ROCEPHIN) VIAL ONE (03:53)
[2016-07-16] MEDS ORDERED: SODIUM CHLORIDE 50 ML IV ONE (03:54)
[2016-07-16] MEDS ORDERED: SODIUM CHLORIDE 250 ML ONE (03:55)
[2016-07-16] MEDS: LORazepam 0.5 MG (ATIVAN) TABLET PO PRN ×2 (04:42→12:57)
--- NOTE | 2016-07-16 04:45 | NUR ---
Requested Lorazepam prn. Given 0.5 mg tab per order.
[2016-07-16 06:08] LABS: BASOPHILS % (AUTO) 1 % (0-2); EOSINOPHILS # (AUTO) 0.1 10^3uL; EOSINOPHILS % (AUTO) 2 % (0-4); LYMPHOCYTES # (AUTO) 1.9 X10^3; MEAN CORPUSCULAR HGB CONC 33.4 g/dL (31.0-37.0); MEAN CORPUSCULAR VOLUME 94 FL (80-100); MEAN PLATELET VOLUME 10.2 FL (6.0-9.5); MONOCYTES # (AUTO) 0.7 X10^3; MONOCYTES % (AUTO) 13 % (3-11); NEUTROPHILS # (AUTO) 2.6 X10^3; NEUTROPHILS % (AUTO) 49 % (51-67); PLATELET COUNT 139 10^3uL (150-450); WHITE BLOOD COUNT 5.32 10^3uL (4.0-11.0)
--- NOTE | 2016-07-16 06:11 | NUR ---
Dorys normal sinus rhythm with pac's rate 71, Dr. Parker notified, will continue IV Diltiazem for now.
--- NOTE | 2016-07-16 06:22 | NUR ---
Has not slept most of night, has had frequent toileting throughout the night with "pressure", uncomfortable in hospital bed, feet spasms and discomfort to back. Prn [place] given overnight, Ativan given. Prn's effective resting in bed at moment with eyes closed.
[2016-07-16 06:42] LABS: MEAN CORPUSCULAR HEMOGLOBIN 31.4 PG (26.0-34.0)
[2016-07-16 06:46] LABS: ALBUMIN 3.8 g/dL (3.4-5.0); ANION GAP 14.9 MEQ/L (3-15)
--- NOTE | 2016-07-16 07:15 | NUR ---
Assisted on to fx bedpan - "I need to sit for awhile and I need my HOB up and knees bent" - limited use of legs due to HX: MS
--- NOTE | 2016-07-16 07:30 | NUR ---
See ICU shift assessment - reports LBP "I think it is because of this mattress"
[2016-07-16] MEDS ORDERED: GABAPENTIN 100 MG (NEURONTIN) CAP PO SCH ×3 (08:00→21:00)
--- NOTE | 2016-07-16 08:00 | NUR ---
Sat on bed edge for breakfast - moved self into sitting position
[2016-07-16] MEDS: GABAPENTIN 100 MG (NEURONTIN) CAP PO SCH ×3 (08:31→18:08)
[2016-07-16] MEDS ORDERED: NFLOSA25TA PO (08:42)
--- NOTE | 2016-07-16 08:46 | NUR ---
Medication reconciliation completed. Using past admission from and external prescription data. Losartan was a new medication started 2 weeks ago. Was added to listing and is currently not started in the hospital. Will let physician know, but based upon current cardiac status with intermittent tachycardia and pressures that currently run on the low normal end (106/43) will not recommend resuming losartan until stabilized.
--- NOTE | 2016-07-16 08:50 | NUR ---
Dr Landin in room
--- NOTE | 2016-07-16 08:59 | Progress Note (E) ---
Progress Note SUBJECTIVE Got moved to ICU overnight because RVR returned despite being on her usual dose of sotalol, 80 mg BID. BP stable, afebrile, HR 70-80's now. Still in atrial fibrillation but rate better controlled. Transitioning to oral diltiazem today. UA was suggestive of UTI so ceftriaxone was started. Of note, she had denied UTI symptoms on admit. On exam, awake, interactive, feels better. Did feel palpitations again when her rate went up. Says she is no longer taking dabigatran. She didn't like the bruising and she says PCP called release of information specialist and she was changed to just aspirin. Reminded her the risk/benefits of this choice. No longer takes magnesium oxide because it gave her diarrhea. OBJECTIVE Vital Signs Date Time Temp Pulse Resp B/P Pulse Ox O2 Delivery O2 Flow Rate FiO2 07/16/16 06:00 96.8 72 14 120/54 95 Nasal cannula 72 07/15/16 19:29 3 I & O 07/15/16 07/16/16 Cumulative From/Thru 19:00 07:00 07/15/16 17:34 - 07/16/16 06:00 Intake Total 899 ml 899 ml Output Total 1000 ml 1000 ml Balance -101 ml -101 ml GEN: Awake, alert, oriented, NAD at present. HEENT: EOMI, PERRL, somewhat dry oral mucosa. CV: RRR S1 S2 normal now with SR on tele. Faint II/ systolic murmur at LSB. LUNGS: CTA B with no R/R/W. ABD: Soft, NT/ND with normal bowel sounds. EXTR: 3+ BLE edema, chronic. INTEG: No rash. Blanching macules on legs bilaterally, chronic. Age related changes. NEURO: No focal motor neuro deficit. Mild psychomotor slowing. Weight: 76.4 kg (78.2 kg on admit) Lab-Past 14 Days, 35 Results 07/15/16 17:19: Alanine Aminotransferase (ALT/SGPT) 15L, Albumin 4.7, Albumin/Globulin Ratio 1.175, Alkaline Phosphatase 109, Anion Gap 17.1H, Aspartate Amino Transf (AST/ SGOT) 21, BUN/Creatinine Ratio 21H, Basophils # (Auto) 0.1, Basophils (%) (Auto ) 1, Blood Urea Nitrogen 14#, Calcium Level 9.9, Calcium/Ionized Calcium Ratio 3.9, Calculated Osmolality 281, Carbon Dioxide Level 30H, Chloride Level 102, Creatine Kinase MB 0.8, Creatinine 0.66, Eosinophils # (Auto) 0.1, Eosinophils ( %) (Auto) 2, Estimat Glomerular Filtration Rate 105.1, Estimated GFR (Non- 86.8, Glucose Level 105, Hematocrit 40.40, Hemoglobin 13.2, Lymphocytes # (Auto) 2.1, Lymphocytes (%) (Auto) 42, Magnesium Level 2.0, Mean Corpuscular Hemoglobin 30.6, Mean Corpuscular Hemoglobin Concent 32.7, Mean Corpuscular Volume 94, Mean Platelet Volume 10.4H, Monocytes # (Auto) 0.6, Monocytes (%) (Auto) 12H, CH-Jtk-L-Type Natriuretic Peptide 1620H, Neutrophils # (Auto) 2.1, Neutrophils (%) (Auto) 42L, Platelet Count 166, Potassium Level 3.9, Prothromb Time International Ratio 1.1, Prothrombin Time 11.8, Red Blood Count 4.32, Red Cell Distribution Width 13.1, Sodium Level 145, Thyroid Stimulating Hormone (TSH) 1.18, Total Bilirubin 1.0, Total Creatine Kinase 31, Total Protein 8.7H, Troponin I < 0.012, White Blood Count 4.93 07/15/16 21:03: Troponin I < 0.012 07/16/16 02:30: Urine Bacteria 3+H, Urine Bilirubin Negative, Urine Blood 2+H, Urine Clarity Clear, Urine Collection Type Clean catch, Urine Color Yellow, Urine Glucose (UA ) Negative, Urine Ketones Negative, Urine Leukocyte Esterase TraceH, Urine Microscopic RBC 2-5, Urine Nitrite PositiveH, Urine Protein Negative, Urine Specific [place] 1.015, Urine Squamous Epithelial Cells 5-10, Urine Urobilinogen 0.2, Urine WBC 2-5, Urine pH 7.0, Volume Urine Centrifuged 12 ml 07/16/16 05:45: Albumin 3.8, Anion Gap 14.9, Basophils # (Auto) 0.1, Basophils (%) (Auto) 1, Blood Urea Nitrogen 13, Calcium Level 9.3, Carbon Dioxide Level 29, Chloride Level 106, Creatinine 0.60, Eosinophils # (Auto) 0.1, Eosinophils (%) (Auto) 2, Estimat Glomerular Filtration Rate 117.3, Estimated GFR (Non- 96.9, Glucose Level 110, Hematocrit 35.60, Hemoglobin 11.9L, Lymphocytes # (Auto ) 1.9, Lymphocytes (%) (Auto) 36, Mean Corpuscular Hemoglobin 31.4, Mean Corpuscular Hemoglobin Concent 33.4, Mean Corpuscular Volume 94, Mean Platelet Volume 10.2H, Monocytes # (Auto) 0.7, Monocytes (%) (Auto) 13H, Neutrophils # ( Auto) 2.6, Neutrophils (%) (Auto) 49L, Platelet Count 139L, Potassium Level 3.5 , Red Blood Count 3.79L, Red Cell Distribution Width 12.9, Sodium Level 147, Troponin I < 0.012, White Blood Count 5.32, Phosphorus Level 3.6 MICRO 07/16 Urine culture PENDING EKG 07/15/16 @ 1737 A flutter? 2:1 with RVR. QTc 488. Rate 155 07/15/16 @ 18[address] SR with no acute ST/T wave changes. IMAGING 07/15/16 CHEST 1 VIEW, AP/PA ONLY* CLINICAL INDICATION: Patient reports palpitations. EXAM: Portable chest x-ray upright view. COMPARISONS: None. FINDINGS: Stable cardiomegaly with no significant pulmonary vascular congestion. There is no interval lung infiltrate. There is no pleural effusion or pneumothorax. There are hypertrophic spurs seen throughout spine. IMPRESSION: 1.: Stable cardiomegaly with no significant pulmonary vascular congestion or interval lung infiltrate. ASSESSMENT Dorys Augustin is a 76 year old female admitted from ED 07/15 where she presented with atrial flutter with RVR in the setting of known atrial fibrillation. She was given NS bolus and diltiazem in ED which converted her to sinus rhythm. She has a few other chronic problems. PLAN * Atrial flutter with RVR, Atrial fibrillation (Chronic): Got diltiazem 20 mg IV bolus in ED which converted her back to sinus rhythm. However, after admit RVR returned and she was moved to ICU for drip. Transitioned to PO diltiazem with goal to wean off drip. Continued sotalol... combo will require close monitoring. Monitor tele, troponin trend. * UTI: Culture pending. Asymptomatic on admit but treated on the basis of UA. * Dehydration: Resolved. On the basis of exam. Mild on admit. NS bolus given in ED. Check UA. Monitor I&O. * F/E/N: Peripheral IV. Regular diet (per patient request.) IVF as above. I&O, daily weight. * Prophylaxis: Chose to stop dabigatran prior this admit. Aspirin. SCDs. * Code Status: DNR. Discussed at the time of admission. * Dispo: Inpatient. Expect 2-3 day stay. CHRONIC ISSUES * Essential Hypertension: sotalol, spironolactone. * B[place]: Home oxygen 2 L at bedtime. * Depression: Fluoxetine * Restless Leg Syndrome: Observe * MS: Not on medication at home. Observe. * Constipation: Bowel regimen. * BLE Edema: Chronic. Compression hose. RACQUEL SALAZAR MD July 16, 2016 08:49
[2016-07-16] MEDS ORDERED: SOTALOL 80 MG (BETAPACE) TAB PO SCH (09:00)
[2016-07-16] MEDS ORDERED: POLYETHYLENE GLYCOL 17 GM (MIRALAX) PACKET PO PRN (09:00)
[2016-07-16] MEDS ORDERED: FLUoxetine 20 MG (PROzac) CAPSULE PO SCH ×2 (09:00)
[2016-07-16] MEDS ORDERED: ASPIRIN 81 MG CHEW (LOW-DOSE) PO SCH (09:00)
[2016-07-16] MEDS ORDERED: HYDROcodone/APAP 7.5 MG/325 MG (NORCO) TABLET PO PRN (09:00)
[2016-07-16] MEDS ORDERED: MAGNESIUM HYDROXIDE 80MG/ML (MILK OF MAGNESIA) 30 ML UDC PO PRN (09:00)
[2016-07-16] MEDS ORDERED: DOCUSATE SODIUM 100 MG (COLACE) CAP PO PRN ×2 (09:00→21:00)
[2016-07-16] MEDS ORDERED: DILTIAZEM CD 120 MG (CARDIZEM CD) CAP PO SCH (09:00)
[2016-07-16] MEDS ORDERED: DABIGATRAN 150 MG (PRADAXA) CAPSULE PO SCH (09:00)
[2016-07-16] MEDS ORDERED: MAGNESIUM OXIDE 400 MG (MAG-OX) TAB PO SCH ×2 (09:00)
[2016-07-16] MEDS ORDERED: SPIRONOLACTONE 25 MG (ALDACTONE) TABLET PO SCH (09:00)
--- NOTE | 2016-07-16 09:10 | NUR ---
Stood @ bededge without assist with walker - slow shuffle pivot gait to BSC - "I have so much gas"
--- NOTE | 2016-07-16 09:30 | NUR ---
Back to bed with assist of moving legs into bed - SCDs applied
--- NOTE | 2016-07-16 10:00 | NUR ---
po dose cardizem
--- NOTE | 2016-07-16 10:15 | NUR ---
Cardizem gtt decreased to 4 mg/hr - SR 60s
--- NOTE | 2016-07-16 10:45 | NUR ---
Asleep - cardizem decreased to 3 mg/hr - SR 60s
--- NOTE | 2016-07-16 11:40 | NUR ---
UP to BSC - to chair after voiding 100 mL clear light yellow urine - brushed teeth "It feels good to sit in the chair"
--- NOTE | 2016-07-16 13:06 | NUR ---
Lorazepam 0.5 mg po for "my legs" - remains up in chair - watching TV - smiling cheerful
--- NOTE | 2016-07-16 13:25 | NUR ---
Walked 20 feet c walker and SB for safety - back to sit in recliner
--- NOTE | 2016-07-16 14:05 | NUR ---
arrived per motorized scooter
--- NOTE | 2016-07-16 14:10 | NUR ---
Condition report called to [facility]
--- NOTE | 2016-07-16 14:20 | NUR ---
IV DC'd RFA "every time I push with this hand it causes pain" - pressure held until bleeding stopped - no redness or swelling @ site - drsg applied
--- NOTE | 2016-07-16 14:30 | NUR ---
Transferred to room 301 per w/c
--- NOTE | 2016-07-16 14:35 | NUR ---
Received as transfer from ICU via w/c to bed in 301. Alert and oriented. Skin w/d. Resp. even and unlabored. Denies pain. Telemetry in place - shows NSR. accompanies to room.
--- NOTE | 2016-07-16 14:40 | NUR ---
Belongings taken to room
[2016-07-16] MEDS ORDERED: LORazepam 0.5 MG (ATIVAN) TABLET PO PRN (17:00)
[2016-07-16] MEDS ORDERED: SODIUM CHLORIDE FLUSH 10 ML SYR IV PRN ×3 (17:40)
[2016-07-16] MEDS ORDERED: ONDANSETRON 4 MG (ZOFRAN) ORAL DISSOLVE TAB PO PRN ×2 (18:00)
--- NOTE | 2016-07-16 18:12 | NUR ---
Up to bathroom with assist of one and use of walker. Denies chest pain or other discomfort. Alert and oriented. Resp. even and unlabored. Telemetry in place - shows NSR in upper 60's.
[2016-07-16] MEDS: SOTALOL 80 MG (BETAPACE) TAB PO SCH (20:35)
[2016-07-16] MEDS ORDERED: ACETAMINOPHEN/DIPHENHYDRAMINE 500/25 MG (TYLENOL PM) TABLET PO PRN ×2 (21:00)
[2016-07-16] MEDS ORDERED: diphenhydrAMINE 25 MG (BENADRYL) TABLET ONE (21:38)
[2016-07-16] MEDS ORDERED: ACETAMINOPHEN 500 MG TAB (TYLENOL) ONE (21:38)
[2016-07-16] MEDS ORDERED: MAGNESIUM HYDROXIDE 80MG/ML (MILK OF MAGNESIA) 30 ML UDC ONE (21:39)
[2016-07-16] MEDS ORDERED: HYDROcodone/APAP 7.5 MG/325 MG (NORCO) TABLET PO ONE (23:39)
[2016-07-17 03:57] VITALS: BP 110/52
[2016-07-17] MEDS ORDERED: cefTRIAXone SODIUM 1,000 MG in SODIUM CHLORIDE 50 ML IV SCH (05:00)
[2016-07-17] MEDS ORDERED: SODIUM CHLORIDE 100 ML ONE (05:10)
--- NOTE | 2016-07-17 07:30 | NUR ---
Patient sitting up in bed upon shift assessment. Alert and oriented X3. Denies pain, chest palpitations, nausea, SOA, or other distress. Respirations even and non-labored on roomair. HR RRR. Telemetry reflecting NSR at a rate of 64 bpm. Trace edema noted to BLE. Updated patient on plan of care for shift. Call light in reach.
[2016-07-17 08:05] VITALS: BP 139/58
[2016-07-17] MEDS: GABAPENTIN 100 MG (NEURONTIN) CAP PO SCH ×3 (08:35→17:31)
[2016-07-17] MEDS: SOTALOL 80 MG (BETAPACE) TAB PO SCH (08:36)
[2016-07-17] MEDS ORDERED: HYDROcodone/APAP 7.5 MG/325 MG (NORCO) TABLET PO PRN (09:00)
[2016-07-17] MEDS ORDERED: SULF-221 PO (09:00)
[2016-07-17] MEDS ORDERED: POLYETHYLENE GLYCOL 17 GM (MIRALAX) PACKET PO PRN (09:00)
[2016-07-17] MEDS ORDERED: MAGNESIUM HYDROXIDE 80MG/ML (MILK OF MAGNESIA) 30 ML UDC PO PRN (09:00)
[2016-07-17] MEDS ORDERED: FLUoxetine 20 MG (PROzac) CAPSULE PO SCH (09:00)
[2016-07-17] MEDS ORDERED: DILTIAZEM CD 120 MG (CARDIZEM CD) CAP PO SCH (09:00)
[2016-07-17] MEDS ORDERED: DLT120CCR PO (09:00)
[2016-07-17] MEDS ORDERED: ASPIRIN 81 MG CHEW (LOW-DOSE) PO SCH (09:00)
--- NOTE | 2016-07-17 09:02 | Discharge Instructions (E) ---
Discharge Instructions Instructions Continue all medications as prescribed Weigh yourself twice a week and report any weight gain over [address] Haas Contact Dr Haas for any questions or concerns Activity Instructions as tolerates Doctor's Appointment Dr Haas appt SundayJuly 18 4 pm Discharge Diet: Heart Healthy Maria Del Carmen Sargent APRN July 17, 2016 09:02
--- NOTE | 2016-07-17 09:06 | Discharge Summary (E FT) ---
Discharge Summary (E FT) Admit Date July 15, 2016 at 23:33 Discharge Date Jul 17 2016 Admitting Provider Cesar Landin MD Primary Care Provider Jose Haas MD Attending Provider Cesar Landin MD Consulting Provider Hospital Course Summary CC: Palpitations HPI Dorys Augustin is a 76 year old female admitted from ED 07/15 where she presented from home via EMS for palpitations. Has been worse over the last two days. Has atrial fibrillation and normally takes sotalol. Before EMS arrived today she was feeling flushed and like she might pass out but didn't. Refused transfer to [facility] when this was suggested in ED. HR was 153 and tele showed 2:1 atrial flutter. Afebrile. BP 137/81. SpO2 94% RA. CBC fairly unremarkable. Chemistry stable but CO2 was 30. Troponin negative. NT-pro- BNP 1620. TSH normal. Urine was not checked. CXR showed no acute changes. She was given NS bolus and diltiazem 20 mg IV bolus which caused her to convert to SR. Symptoms improved. She was admitted with telemetry for further observation. Seen and examined in ED. States onset of this illness was through last week, off and on, having pounding and fluttering feeling in her chest. Episodes would last for a few minutes but it was occurring 3-4 times each day. Grew progressively worse especially last two days with longer periods of palpitations. Taking deep breaths would sometimes help. Admits to sometimes being a bit later int he morning with sotalol but overall, no missed doses. Denies chest pain. [place] like she might pass out today but has not had syncopal episode. No fever, no cough, no new shortness of breath. No new GI complaints but she had nausea with the near syncopal episode. Vital Signs Date Time Temp Pulse Resp B/P Pulse Ox O2 Delivery O2 Flow Rate FiO2 07/17/16 08:38 68 07/17/16 08:05 97.0 20 139/58 93 Room air 07/16/16 15:23 0.00 Laboratory Results Past 48 Hrs 07/15/16 17:19: Alanine Aminotransferase (ALT/SGPT) 15L, Albumin 4.7, Albumin/Globulin Ratio 1.175, Alkaline Phosphatase 109, Anion Gap 17.1H, Aspartate Amino Transf (AST/ SGOT) 21, BUN/Creatinine Ratio 21H, Basophils # (Auto) 0.1, Basophils (%) (Auto ) 1, Blood Urea Nitrogen 14#, Calcium Level 9.9, Calcium/Ionized Calcium Ratio 3.9, Calculated Osmolality 281, Carbon Dioxide Level 30H, Chloride Level 102, Creatine Kinase MB 0.8, Creatinine 0.66, Eosinophils # (Auto) 0.1, Eosinophils ( %) (Auto) 2, Estimat Glomerular Filtration Rate 105.1, Estimated GFR (Non- 86.8, Glucose Level 105, Hematocrit 40.40, Hemoglobin 13.2, Lymphocytes # (Auto) 2.1, Lymphocytes (%) (Auto) 42, Magnesium Level 2.0, Mean Corpuscular Hemoglobin 30.6, Mean Corpuscular Hemoglobin Concent 32.7, Mean Corpuscular Volume 94, Mean Platelet Volume 10.4H, Monocytes # (Auto) 0.6, Monocytes (%) (Auto) 12H, YK-Feb-T-Type Natriuretic Peptide 1620H, Neutrophils # (Auto) 2.1, Neutrophils (%) (Auto) 42L, Platelet Count 166, Potassium Level 3.9, Prothromb Time International Ratio 1.1, Prothrombin Time 11.8, Red Blood Count 4.32, Red Cell Distribution Width 13.1, Sodium Level 145, Thyroid Stimulating Hormone (TSH) 1.18, Total Bilirubin 1.0, Total Creatine Kinase 31, Total Protein 8.7H, Troponin I < 0.012, White Blood Count 4.93 07/15/16 21:03: Troponin I < 0.012 07/16/16 02:30: Urine Bacteria 3+H, Urine Bilirubin Negative, Urine Blood 2+H, Urine Clarity Clear, Urine Collection Type Clean catch, Urine Color Yellow, Urine Glucose (UA ) Negative, Urine Ketones Negative, Urine Leukocyte Esterase TraceH, Urine Microscopic RBC 2-5, Urine Nitrite PositiveH, Urine Protein Negative, Urine Specific [place] 1.015, Urine Squamous Epithelial Cells 5-10, Urine Urobilinogen 0.2, Urine WBC 2-5, Urine pH 7.0, Volume Urine Centrifuged 12 ml 07/16/16 05:45: Albumin 3.8, Anion Gap 14.9, Basophils # (Auto) 0.1, Basophils (%) (Auto) 1, Blood Urea Nitrogen 13, Calcium Level 9.3, Carbon Dioxide Level 29, Chloride Level 106, Creatinine 0.60, Eosinophils # (Auto) 0.1, Eosinophils (%) (Auto) 2, Estimat Glomerular Filtration Rate 117.3, Estimated GFR (Non- 96.9, Glucose Level 110, Hematocrit 35.60, Hemoglobin 11.9L, Lymphocytes # (Auto ) 1.9, Lymphocytes (%) (Auto) 36, Mean Corpuscular Hemoglobin 31.4, Mean Corpuscular Hemoglobin Concent 33.4, Mean Corpuscular Volume 94, Mean Platelet Volume 10.2H, Monocytes # (Auto) 0.7, Monocytes (%) (Auto) 13H, Neutrophils # ( Auto) 2.6, Neutrophils (%) (Auto) 49L, Platelet Count 139L, Potassium Level 3.5 , Red Blood Count 3.79L, Red Cell Distribution Width 12.9, Sodium Level 147, Troponin I < 0.012, White Blood Count 5.32, Phosphorus Level 3.6 Today she feels well, ate breakfast and feels like shes ready to go home. No chest pain or SOB GEN: Awake, alert, oriented, NAD at present. HEENT: EOMI, PERRL, moist oral mucosa. CV: RRR S1 S2 normal now with SR on tele. Faint II/ systolic murmur at LSB. LUNGS: CTA B with no R/R/W. ABD: Soft, NT/ND with normal bowel sounds. EXTR: 3+ BLE edema, chronic. INTEG: No rash. Age related changes. NEURO: No focal motor neuro deficit. Mild psychomotor slowing. Weight: 76.4 kg (78.2 kg on admit) Lab-Past 14 Days, 35 Results 07/15/16 17:19: Alanine Aminotransferase (ALT/SGPT) 15L, Albumin 4.7, Albumin/Globulin Ratio 1.175, Alkaline Phosphatase 109, Anion Gap 17.1H, Aspartate Amino Transf (AST/ SGOT) 21, BUN/Creatinine Ratio 21H, Basophils # (Auto) 0.1, Basophils (%) (Auto ) 1, Blood Urea Nitrogen 14#, Calcium Level 9.9, Calcium/Ionized Calcium Ratio 3.9, Calculated Osmolality 281, Carbon Dioxide Level 30H, Chloride Level 102, Creatine Kinase MB 0.8, Creatinine 0.66, Eosinophils # (Auto) 0.1, Eosinophils ( %) (Auto) 2, Estimat Glomerular Filtration Rate 105.1, Estimated GFR (Non- 86.8, Glucose Level 105, Hematocrit 40.40, Hemoglobin 13.2, Lymphocytes # (Auto) 2.1, Lymphocytes (%) (Auto) 42, Magnesium Level 2.0, Mean Corpuscular Hemoglobin 30.6, Mean Corpuscular Hemoglobin Concent 32.7, Mean Corpuscular Volume 94, Mean Platelet Volume 10.4H, Monocytes # (Auto) 0.6, Monocytes (%) (Auto) 12H, RC-Cxp-V-Type Natriuretic Peptide 1620H, Neutrophils # (Auto) 2.1, Neutrophils (%) (Auto) 42L, Platelet Count 166, Potassium Level 3.9, Prothromb Time International Ratio 1.1, Prothrombin Time 11.8, Red Blood Count 4.32, Red Cell Distribution Width 13.1, Sodium Level 145, Thyroid Stimulating Hormone (TSH) 1.18, Total Bilirubin 1.0, Total Creatine Kinase 31, Total Protein 8.7H, Troponin I < 0.012, White Blood Count 4.93 07/15/16 21:03: Troponin I < 0.012 07/16/16 02:30: Urine Bacteria 3+H, Urine Bilirubin Negative, Urine Blood 2+H, Urine Clarity Clear, Urine Collection Type Clean catch, Urine Color Yellow, Urine Glucose (UA ) Negative, Urine Ketones Negative, Urine Leukocyte Esterase TraceH, Urine Microscopic RBC 2-5, Urine Nitrite PositiveH, Urine Protein Negative, Urine Specific [place] 1.015, Urine Squamous Epithelial Cells 5-10, Urine Urobilinogen 0.2, Urine WBC 2-5, Urine pH 7.0, Volume Urine Centrifuged 12 ml 07/16/16 05:45: Albumin 3.8, Anion Gap 14.9, Basophils # (Auto) 0.1, Basophils (%) (Auto) 1, Blood Urea Nitrogen 13, Calcium Level 9.3, Carbon Dioxide Level 29, Chloride Level 106, Creatinine 0.60, Eosinophils # (Auto) 0.1, Eosinophils (%) (Auto) 2, Estimat Glomerular Filtration Rate 117.3, Estimated GFR (Non- 96.9, Glucose Level 110, Hematocrit 35.60, Hemoglobin 11.9L, Lymphocytes # (Auto ) 1.9, Lymphocytes (%) (Auto) 36, Mean Corpuscular Hemoglobin 31.4, Mean Corpuscular Hemoglobin Concent 33.4, Mean Corpuscular Volume 94, Mean Platelet Volume 10.2H, Monocytes # (Auto) 0.7, Monocytes (%) (Auto) 13H, Neutrophils # ( Auto) 2.6, Neutrophils (%) (Auto) 49L, Platelet Count 139L, Potassium Level 3.5 , Red Blood Count 3.79L, Red Cell Distribution Width 12.9, Sodium Level 147, Troponin I < 0.012, White Blood Count 5.32, Phosphorus Level 3.6 MICRO 07/16 Urine culture PENDING EKG 07/15/16 @ 1737 A flutter? 2:1 with RVR. QTc 488. Rate 155 07/15/16 @ 1833 SR with no acute ST/T wave changes. IMAGING 07/15/16 CHEST 1 VIEW, AP/PA ONLY* CLINICAL INDICATION: Patient reports palpitations. EXAM: Portable chest x-ray upright view. COMPARISONS: None. FINDINGS: Stable cardiomegaly with no significant pulmonary vascular congestion. There is no interval lung infiltrate. There is no pleural effusion or pneumothorax. There are hypertrophic spurs seen throughout spine. IMPRESSION: 1.: Stable cardiomegaly with no significant pulmonary vascular congestion or interval lung infiltrate. ASSESSMENT Dorys Augustin is a 76 year old female admitted from ED 07/15 where she presented with atrial flutter with RVR in the setting of known atrial fibrillation. She was given NS bolus and diltiazem in ED which converted her to sinus rhythm. She has a few other chronic problems. PLAN * Atrial flutter with RVR, Atrial fibrillation (Chronic): On PO cardizem 120 mg po daily now. * UTI: Culture pending. Will send home on Bactrim. Dr Haas to follow up culture when available. Asymptomatic on admit but treated on the basis of UA. * Dehydration: Resolved. * Code Status: DNR. * Dispo: Home today with family- she declined fci or any help at home. States her daughter and will help her. She will see Dr Arboleda tomorrow at 4pm for f/u appt CHRONIC ISSUES * Essential Hypertension: sotalol, spironolactone. * BARTOLOME: Home oxygen 2 L at bedtime. * Depression: Fluoxetine * Restless Leg Syndrome: Observe * MS: Not on medication at home. Observe. * Constipation: Bowel regimen. * BLE Edema: Chronic. Compression hose. Discharge Disposition Home with family Appt Dr Haas July 18 at 4 pm New Medications: Sulfamethoxazole/Trimethoprim (Sulfamethoxazole/Trimethoprim DS 800mg/160mg) 1 Each Tablet 1 EACH PO BID #10 TAB Diltiazem HCl (Cardizem CD) 120 Mg Cap.er.24h 120 MG PO DAILY #60 CAP Continued Medications: Acetaminophen/Diphenhydramine (Tylenol Pm) 1 Ea Tab 1 TAB PO HS PRN PAIN/INSOMNIA #0 Ref 0 TAB Dabigatran Etexilate (Pradaxa) 150 Mg Capsule 150 MG PO BID #60 Ref 0 CAP Docusate Sodium (Docusate Sodium) 100 Mg Capsule 100 MG PO DAILY Constipation Ref 0 CAP Fluoxetine HCl (Prozac) 20 Mg Capsule 20 MG PO DAILY Gabapentin (Gabapentin) 100 Mg Capsule 200 MG PO HS #0 Ref 0 CAP Gabapentin (Gabapentin) 100 Mg Capsule 100 MG PO TIDWM CAP Hydrocodone/Acetaminophen ([place] 7.5mg/325mg) 1 Ea Tablet 0.5-1 TAB PO DAILY PRN PAIN Ref 0 TAB Hydrocortisone (Anusol-HC 2.5% Cream) 30 Gm Cr 0 TOP BID PRN DISCOMFORT #28 Lorazepam (Lorazepam) 0.5 Mg Tablet 0.5 MG PO QID PRN ANXIETY Ref 0 TAB Losartan Potassium (Losartan Potassium) 25 Mg Tablet 25 MG PO DAILY Magnesium Oxide (Magnesium Oxide) 400 Mg Tablet 400 MG PO DAILY #30 Ref 0 TAB Sotalol HCl (Sotalol) 80 Mg Tablet 80 MG PO BID Spironolactone (Spironolactone) 25 Mg Tablet 25 MG PO DAILY #30 Ref 0 TAB Follow up Instructions Continue all medications as prescribed Weigh yourself twice a week and report any weight gain over [address] Haas Contact Dr Haas for any questions or concerns Copies to: End of Report . Maria Del Carmen Sargent APRN July 17, 2016 09:06
[2016-07-17 11:48] VITALS: BP 114/52
[2016-07-17 16:31] VITALS: BP 129/56
--- NOTE | 2016-07-17 18:10 | NUR ---
Dismissed to home per w/c accompanied by hospitality housekeeper Preethi Gonsalez and family. skin w/p/d. Resp unlabored. A/O x 4. no complaint of pain upon dismissal.
== END 2016-07-17 18:10 | disposition home or self-care (01) | DRG 309 ==
LOC: ED 17:31 → UNDOADMOB 19:00 → MED/SURG 19:00 → INTOOBSV 23:33 → ICU 23:33 → OBSVTOIN 23:33 → MED/SURG 07-16 14:30
PROVIDERS: ADMIT Internal Medicine; ATTEND Internal Medicine
DX: I48.92 Unspecified atrial flutter (principal); N39.0 Urinary tract infection, site not specified; I48.0 Paroxysmal atrial fibrillation; Z66 Do not resuscitate; E86.0 Dehydration; I10 Essential (primary) hypertension; G25.81 Restless legs syndrome; K59.00 Constipation, unspecified; G47.33 Obstructive sleep apnea (adult) (pediatric); F32.9 Major depressive disorder, single episode, unspecified; G35 Multiple sclerosis; Z79.02 Long term (current) use of antithrombotics/antiplatelets
CPT/HCPCS: 36415; 71010; 80053; 80069; 81003; 81015; 82550; 82553; 83735; 83880; 84443; 84484; 85025; 85610; 87088; 93005; 93010; 96374; 99285

== ENCOUNTER → 2016-07-15 | Outpatient (CLI) | payer MEDICARE, OTHER ==
[~2016-07-15] MED LIST: ACDPT PO; ALEN70TA2 PO; DABI150C PO; DLT120CCR PO; DOCU100C8 PO; FERR300L PO; FLUO20CA42 PO; FURO-125 PO; FURO40TA4 PO; GBPN100C PO; HC2.5C30 TOP; HCT25T PO; HYDR-3811 PO; HYDR12.5 PO; LORA0.5T PO; MGX400T PO; MTP50T PO; NFLOSA25TA PO; POTA10CA2 PO; PRD10T PO; SOTA80TA PO; SPIR1TAB PO; SPIR25TA PO; SPRN25T PO; SULF-221 PO
== END ==
LOC: EMS 15:22
PROVIDERS: ATTEND Family Medicine
DX: I49.8 Other specified cardiac arrhythmias (principal)